=== PATIENT | male | born 1975 | race Two or more races ===

== ENCOUNTER 2019-08-19 12:24 | Emergency (ER) | payer BC ==
[2019-08-19] MEDS ORDERED: Chlorthalidone 25 MG Tab PO ONE (13:35)
--- NOTE | 2019-08-19 13:42 | EDM.PDOC ---
ED HPI GENERAL MEDICAL PROBLEM - General Chief Complaint: Respiratory Problem Stated Complaint: COUGH/HIGH BP Time Seen by Provider: 08/19/19 13:23 Source of Information: Reports: Patient, Family (brother), RN Notes Reviewed History Limitations: Reports: No Limitations - History of Present Illness INITIAL COMMENTS - FREE TEXT/NARRATIVE: Patient is a 43-year-old male who presents to the ER today for the evaluation of his dry cough. Patient states that he has had a dry, hacking type cough for around 6 days now. He has not been able to find anything that really made this better. Patient states he had a mild fever a few days ago, but is not having a fever today. He went to the walk-in clinic for evaluation, but they sent him over here due to his elevated blood pressure. Blood pressure at time of triage here today is 185/129, and after 20 minutes of restful waiting in the ER, it is still 177/130, there are multiple readings similar to this reading while he was waiting. Patient does not feel overly stressed, nor is he complaining of any chest pain, shortness of breath, peripheral edema, or any other symptoms, he mainly is concerned about the dry cough that he has been having. Patient states he moved here roughly 6 to 9 months ago, and has not set up care with a primary care provider. He does take losartan 50 mg on a daily basis, he states he is taken this for 2 years now. - Related Data Allergies Allergy/AdvReac Type Severity Reaction Status Date / Time No Known Allergies Allergy Verified 08/19/19 12:50 Home Meds: Home Meds Chlorthalidone 12.5 mg PO DAILY #15 tab 08/19/19 [Rx] Losartan [Cozaar] 50 mg PO DAILY 08/19/19 [History] Past Medical History Cardiovascular History: Reports: Hypertension Social & Family History - Tobacco Use Smoking Status *Q: Never Smoker ED ROS GENERAL - Review of Systems Review Of Systems: See Below Constitutional: Denies: Fever, Chills Respiratory: Reports: Cough (dry intermittent ). Denies: Shortness of Breath, Sputum Cardiovascular: Denies: Chest Pain GI/Abdominal: Denies: Abdominal Pain, Constipation, Diarrhea, Nausea, Vomiting Neurological: Denies: Confusion, Dizziness, Headache Psychiatric: Denies: Anxiety ED EXAM, GENERAL - Physical Exam Exam: See Below Exam Limited By: No Limitations General Appearance: Alert, WD/WN, No Apparent Distress Eye Exam: Bilateral Eye: EOMI, Normal Inspection, PERRL Ears: Normal External Exam Nose: Normal Inspection Throat/Mouth: Normal Inspection, Normal Lips, Normal Teeth, Normal Gums, Normal Oropharynx, Normal Voice, No Airway Compromise, Other (Mild postnasal drip noted in his oropharynx) Head: Atraumatic, Normocephalic Neck: Normal Inspection Respiratory/Chest: No Respiratory Distress, Lungs Clear, Normal Breath Sounds, No Accessory Muscle Use, Chest Non-Tender Cardiovascular: Normal Peripheral Pulses, Regular Rate, Rhythm, No Murmur Peripheral Pulses: 3+: Radial (L), Radial (R) GI/Abdominal: Normal Bowel Sounds, Soft, Non-Tender, No Distention, No Mass Extremities: Normal Inspection, Normal Capillary Refill Neurological: Alert, Oriented, Normal Cognition, No Motor/Sensory Deficits Psychiatric: Normal Affect, Normal Mood Skin Exam: Warm, Dry, Intact, Normal Color, No Rash Course - Vital Signs Last Recorded V/S: Last Vital Signs Temp 97.9 F 08/19/19 12:47 Pulse 99 08/19/19 12:47 Resp 18 08/19/19 12:47 BP 185/129 H 08/19/19 12:47 Pulse Ox 100 08/19/19 12:47 - Orders/Labs/Meds Meds: Medications Discontinued Medications Generic Name Dose Route Start Last Admin Trade Name Pelonq PRN Reason Stop Dose Admin Chlorthalidone 12.5 mg 08/19/19 13:35 Chlorthalidone PO 08/19/19 13:36 ONETIME ONE - Re-Assessments/Exams Free Text/Narrative Re-Assessment/Exam: 08/19/19 13:44 Patient presents to the ED for evaluation of his dry cough that developed 6 days ago. I do suspect is more of a viral illness in nature. Does seem to be keeping him up at night, so we will provide him some cough medicine and will also encourage him to do sinus rinsing and trial Claritin for 2-week basis see if this does not help clear up the cough. He has been on the losartan for 2 years, so I have a low suspicion that this is causing his cough. He does not have a primary care provider, I will have him follow-up with a provider in our clinic for further evaluation and management as his symptoms are not any emergent or urgent consideration at this visit. I did try 12.5 mg chlorthalidone with him and will also trial this with him over the next week or 2 to see if it does not help bring his blood pressure down. Patient is okay with this plan at this time. Departure - Departure Time of Disposition: 13:45 Disposition: Home, Self-Care 01 Condition: Fair Clinical Impression: Persistent dry cough, Elevated blood pressure reading in office with diagnosis of hypertension - Discharge Information *PRESCRIPTION DRUG MONITORING PROGRAM REVIEWED*: No *COPY OF PRESCRIPTION DRUG MONITORING REPORT IN PATIENT RIDGE: No Prescriptions: Chlorthalidone 12.5 mg PO DAILY #15 tab Instructions: DASH Eating Plan, How to Take Your Blood Pressure, [id number], Cough, Adult, [id number] Referrals: PCP,None [Primary Care Provider] - Additional Instructions: You were evaluated in the ER today regarding your dry cough and elevated blood pressure. You were given medication, chlorthalidone, 12.5 mg for your elevated blood pressure. This did help your blood pressure issue in the ER. You will be given a prescription of this to try over the next few weeks. Please take as directed, one half tab daily unless told otherwise by different provider. Your cough may be due to postnasal drip in nature. You will need to start doing sinus rinses, please get a NeYASSSUMed sinus rinse kit, these are available [id number] and perform as the box instructions. You will need to follow-up with a regular provider of choice, our clinic number [phone], any family practice provider would be able to help you with the services. Please call Tuesday morning to obtain an appointment within the next 2 weeks. Over the next few days you will need to keep a blood pressure journal, you were given a handout on how and when to take your blood pressure please do so and write this down in a small notebook and take this to your appointment for your provider to look over. Please return to the ER at any time if your symptoms change or worsen. Sepsis Event Note - Evaluation Sepsis Screening Result: No Definite Risk - Focused Exam Vital Signs: Vital Signs Temp Pulse Resp BP Pulse Ox 08/19/19 12:47 97.9 F 99 18 185/129 H 100 Date Exam was Performed: 08/19/19 Time Exam was Performed: 13:37
== END 2019-08-19 14:02 | disposition home or self-care (01) ==
LOC: JD.ED 12:24
DX: I10 Essential (primary) hypertension (principal); R05 Cough
CPT/HCPCS: 99283; A9270